=== PATIENT | male | born 1980 | race Caucasian/White ===

== ENCOUNTER 2017-02-10 00:55 | Inpatient (IN) | payer BC ==
[2017-02-10] VITALS (7 sets, daily range): BP systolic 98–143; BP diastolic 62–92
[~2017-02-10] VITALS: Ht 185.4 cm; Wt 122.5 kg
--- NOTE | ~2017-02-10 | O ---
[facility] [place] [address] OPERATIVE REPORT Name: FRANCIS ROOT Room #: 424-P ADM IN M.R.#: [id number] Admission: 02/10/17 Attend Phys: Al Betancourt MD Discharge: Date of : 80 Report #: [id number] THIS REPORT FOR: //name// CC: [facility] physician/PCP Al Betancourt SURGEON: Faby Castillo MD. SURVEY CAD TECHNICIAN: None. PREOPERATIVE DIAGNOSIS: Difficult Ovalle catheter placement. POSTOPERATIVE DIAGNOSIS: Difficult Ovalle catheter placement, [place] within the urethra. PROCEDURES PERFORMED: 1. Cystoscopy. 2. Ovalle catheter placement over a wire. CLINICAL SCENARIO: The patient is a 36-year-old gentleman who is undergoing surgery with Dr. Hernandez today and noted after his Ovalle was placed that no output was seen within the drainage bag. The Ovalle was therefore withdrawn and blood returned. Urology was asked to assess and make an attempt to replace the Ovalle catheter. NARRATIVE OF EVENTS: When I entered the operative suite, the patient was already prepped and draped in the dorsal lithotomy position. A flexible cystoscope had been brought into the operative suite. I inserted the flexible cystoscope into the urethra. The anterior urethra showed a [place] near the bulbar region. Proximal to this, I identified the sphincter, a small nonobstructive appearing prostate. I then entered the bladder and a large residual of urine was noted. I advanced a sensor wire followed by [address] catheter. Urine was clear after this was placed. I discussed this with Dr. Hernandez and recommended leaving the catheter for a few days to allow urethral healing. The patient was awakened from anesthesia at that point and transferred to the recovery area. By: [id number] Faby Castillo MD /nt
--- NOTE | ~2017-02-10 | S ---
[facility] [place] [address] SURGICAL PATH RPT PROCEDURE Name: OWEN ROOT Room #: 419-P ADM IN M.R.#: [id number] Admission: 02/10/17 Date of : 80 Discharge: Report #: [id number] Path Case #: [id number] PATHOLOGY REPORT COLLECTION DATE: 02/14/2017 RECEIVED DATE: 02/15/2017 SUBMITTING PHYS: Dr. Delon Raines, OTHER PHYS: Dr. Faby Betancourt SPECIMEN(S) RECEIVED: A.Sigmoid colon * * * * * * * * * * * * FINAL DIAGNOSIS: Colon, sigmoid, resection: - Colon with chronic diverticulitis, reactive changes, and extensive serosal adhesions (vegetable matter present in adhesion). PATHOLOGIST: Owen Anne M.D. REPORT ELECTRONICALLY SIGNED BY: Owen Anne M.D. DATE/TIME: 02/18/2017 14:26 * * * * * * * * * * * * GROSS PATHOLOGY: A. Received in formalin labeled "Owen Root sigmoid colon" and consists of a markedly dilated, on oriented, and on opened segment of large intestine that measures 25 cm in length with a diameter ranging from 5.5 cm to 13.0 cm. There is minimal fat attached to the segment. There are thick and ragged dark red maroon serosal adhesions at one end, narrow end. The remaining serosa is glistening, pink, red, and purple. The segment contains air and a small amount of pasty green brown fecal material. There is thickening of the muscularis propria at narrow end. The mucosa is markedly hyperemic and gradually transitioning into glistening curry mucosa at the dilated end. There are no mucosal masses identified. A1 margin at dilated end, customer service representative A2 opposite margin, customer service representative A3-A6 transmural sections of segment (NUNO; 02/15/2017) CLINICAL HISTORY: Large bowel obstruction INITIAL CPT CODE(S): [address] [address] SURGICAL PATH RPT PROCEDURE Name: OWEN ROOT Room #: 419-P ADM IN M.R.#: [id number] Admission: 02/10/17 Date of : 80 Discharge: Report #: [id number] Path Case #: [id number] A; 18200 Professional services performed by [facility] at [address] , [place] [address] Technical services performed by [facility] at [address] [place] [address], [address], [place] [address]. [facility] [address] [address] PHONE: [phone] DIRECTOR: Vikas Mcelroy M.D. * * * END OF REPORT * * *
--- NOTE | ~2017-02-10 | CRIT ---
[facility] [place] [address] CRITICAL CARE NOTE Name: FRANCIS ROOT Room #: 424-P ADM IN M.R.#: [id number] Admission: 02/10/17 Attend Phys: Al Betancourt MD Discharge: Date of : 80 Report #: [id number] THIS REPORT FOR: //name// CC: [facility] physician/PCP Al Betancourt DATE OF SERVICE: 02/10/2017 HISTORY OF PRESENT ILLNESS: This is a very pleasant 36-year-old male who I have been asked to see for further evaluation of obstructive GI symptoms, left lower quadrant and diffuse abdominal pain. He has had a change in bowel caliber over the course of the last several months. He had a workup approximately 1 month ago, which was negative at [facility] including a colonoscopy, which was either done at [facility] or [place]. He had had a colonoscopy approximately 1 year before that. PAST MEDICAL HISTORY: Is otherwise remarkable only for diverticulitis, IBS and ingrown toenail surgery. SOCIAL HISTORY: Denies significant alcohol consumption, but does smoke 1/2 a pack of cigarettes per day for 18 years. REVIEW OF SYSTEMS: Negative for weight loss, weakness or fatigue. He denies head, eyes, ears, nose or throat complaints. Denies chest pain, chest palpitation, chest pressure, cough, shortness of breath, wheezing, genitourinary, musculoskeletal or neuropsychiatric complaints. PHYSICAL EXAMINATION: GENERAL: The patient is afebrile. VITAL SIGNS: Stable. HEENT: Nonicteric. NECK: No JVD, thyromegaly or bruits. CARDIOVASCULAR: Regular. LUNGS: Clear. ABDOMEN: Soft, nondistended, nontender, normoactive bowel sounds. No hepatosplenomegaly. No stigmata of chronic liver disease. No abnormal masses or bruits. EXTREMITIES: No clubbing, cyanosis or edema. NEUROLOGIC: Grossly intact. RECTAL: Deferred. PERTINENT LABORATORY DATA: Include hemoglobin 16.1, white count 11.2. Chemistry unremarkable except for glucose 124. X-ray reveals 6 cm malignant-appearing stricture of the distal sigmoid colon with resultant colonic distention. [address] [address] CRITICAL CARE NOTE Name: FRANCIS ROOT Room #: 424-P ADM IN M.R.#: [id number] Admission: 02/10/17 Attend Phys: Al Betancourt MD Discharge: Date of : 80 Report #: [id number] ASSESSMENT AND PLAN: In summary, the patient has recurrent diverticulitis. He has had a colonoscopy done in the course of the last several months, but also a year ago, which did not reveal colon carcinoma. I suspect this is a diverticulitis with stricture. He is not fully obstructed as he does pass some bowel movement and liquid. We will prep him with enema prep as he is unlikely to tolerate p.o. prep due to his partial obstruction. We will plan on colonoscopy tomorrow. Thank you for allowing us to participate in the care of this nice man. By: [id number] 1402 Cordell Patel MD /nt
--- NOTE | ~2017-02-10 | S ---
[facility] [place] [address] SURGICAL PATH RPT PROCEDURE Name: OWEN ROOT Room #: 424-P ADM IN M.R.#: [id number] Admission: 02/10/17 Date of : 80 Discharge: Report #: [id number] Path Case #: [id number] PATHOLOGY REPORT COLLECTION DATE: 02/11/2017 RECEIVED DATE: 02/11/2017 SUBMITTING PHYS: Dr. Norm Ontiveros OTHER PHYS: Dr. Al Betancourt SPECIMEN(S) RECEIVED: A.Sigmoid colon stricture * * * * * * * * * * * * FINAL DIAGNOSIS: Large intestinal mucosa, "sigmoid colon stricture", endoscopic biopsy: - Mild architectural abnormalities identified along with subtle lamina propria fibrosis (please see comment). - Negative for active colitis. - Negative for dysplasia or malignancy. COMMENT: Examination shows mildly increased cellularity of the lamina propria along with subtle fibrosis in scattered foci in addition to focal crypt architectural abnormalities. Overall, findings are suggestive of a chronic process. A small focus with a collection of pigmented macrophages within lamina propria (suggestive of melanosis coli) is identified. Overall findings may be suggestive of a chronic resolving process, such as chronic diverticulitis, resolved episode of prior colitis, or past history of laxative use. Findings to suggest microscopic colitis are not identified. Please correlate clinically. (IUV:mml; 02/12/2017) PATHOLOGIST: Jo Ross M.D. REPORT ELECTRONICALLY SIGNED BY: Jo Ross M.D. DATE/TIME: 02/12/2017 16:56 * * * * * * * * * * * * GROSS PATHOLOGY: The specimen is received in formalin, labeled "Owen Root and sigmoid colon stricture", are several curry soft tissue 0.3 x 0.3 x 0.1 cm in aggregate, entirely submitted in A1. (SWS; 02/11/2017) [facility] [place] [address] SURGICAL PATH RPT PROCEDURE Name: OWEN ROOT Room #: 424-P ADM IN M.R.#: [id number] Admission: 02/10/17 Date of : 80 Discharge: Report #: [id number] Path Case #: [id number] CLINICAL HISTORY: Bowel obstruction, colon stricture INITIAL CPT CODE(S): A; 54174 Professional services performed by [facility] [address], [place] [address] Technical services performed by [facility] at [address] [place] [address], [facility] [address] [address]. [facility] [address] [place] [address] PHONE: [phone] DIRECTOR: Vikas Mcelroy M.D. * * * END OF REPORT * * *
[2017-02-10 02:02] LABS: ABSOLUTE NEUTROPHILS 6.8 thou/uL (1.4-8.2); BASOPHILS 0.3 % (0.0-2.0); EOSINOPHILS 0.8 % (0.0-3.0); HEMATOCRIT 46.8 % (42.0-52.0); HEMOGLOBIN 16.1 gm/dL (14.0-18.0); LYMPHOCYTES 32.3 % (24.0-44.0); MCH 31.6 pg (26.0-34.0); MCHC 34.3 g/dL (28.0-37.0); MCV 91.9 fL (80.0-100.0); MONOCYTES 6.3 % (1.0-8.0); PLATELET COUNT 201 thou/uL (150-400); POLYS 60.3 % (36.0-66.0); RBC 5.09 mil/uL (4.50-6.00); RDW 12.8 % (10.5-14.5); WBC 11.2 thou/uL (4.0-11.0)
[2017-02-10 02:04] LABS: MANUAL DIFF NO
[2017-02-10 02:05] LABS: CALCIUM 9.3 mg/dL (8.5-10.1); CREATININE 1.2 mg/dL (0.7-1.3); POTASSIUM 3.8 mmol/L (3.5-5.1)
[2017-02-10 02:10] LABS: ALBUMIN 4.4 g/dL (3.4-5.0); DIRECT BILIRUBIN 0.1 mg/dL (<0.1-0.3); TOTAL BILIRUBIN 0.6 mg/dL (<0.1-1.0); TOTAL PROTEIN 8.1 g/dL (6.4-8.2)
[2017-02-11 04:30] VITALS: BP 99/58
[2017-02-11 06:23] LABS: ABSOLUTE NEUTROPHILS 1.9 thou/uL (1.4-8.2); BASOPHILS 0.3 % (0.0-2.0); EOSINOPHILS 1.6 % (0.0-3.0); HEMATOCRIT 42.5 % (42.0-52.0); HEMOGLOBIN 14.8 gm/dL (14.0-18.0); LYMPHOCYTES 48.2 % (24.0-44.0); MCHC 34.7 g/dL (28.0-37.0); MCV 92.1 fL (80.0-100.0); MONOCYTES 11.4 % (1.0-8.0); PLATELET COUNT 170 thou/uL (150-400); POLYS 38.5 % (36.0-66.0); RBC 4.62 mil/uL (4.50-6.00); RDW 12.9 % (10.5-14.5); WBC 4.9 thou/uL (4.0-11.0)
[2017-02-11 06:27] LABS: MANUAL DIFF NO
[2017-02-11 06:33] LABS: CALCIUM 8.8 mg/dL (8.5-10.1); CREATININE 1.1 mg/dL (0.7-1.3); POTASSIUM 4.4 mmol/L (3.5-5.1)
[2017-02-11 08:30] VITALS: BP 107/69
[2017-02-11 15:45] VITALS: BP 148/81
[2017-02-11 20:58] VITALS: BP 126/86
[2017-02-12 05:40] VITALS: BP 94/57
[2017-02-12 08:00] VITALS: BP 97/52
[2017-02-12 16:00] VITALS: BP 122/77
[2017-02-12 19:10] VITALS: BP 117/75
[2017-02-13 03:10] VITALS: BP 122/75
[2017-02-13 08:08] VITALS: BP 114/56
[2017-02-13 15:08] VITALS: BP 118/79
[2017-02-13 19:42] VITALS: BP 128/77
[2017-02-14 04:24] VITALS: BP 115/69
[2017-02-14 08:00] VITALS: BP 118/86
[2017-02-14 18:23] VITALS: BP 147/94
[2017-02-15 04:44] VITALS: BP 150/96
[2017-02-15 06:24] LABS: HEMATOCRIT 48.8 % (42.0-52.0); HEMOGLOBIN 16.8 gm/dL (14.0-18.0); MCH 31.7 pg (26.0-34.0); MCHC 34.5 g/dL (28.0-37.0); MCV 91.8 fL (80.0-100.0); PLATELET COUNT 241 thou/uL (150-400); RBC 5.31 mil/uL (4.50-6.00); RDW 13.1 % (10.5-14.5)
[2017-02-15 06:35] LABS: MANUAL DIFF YES
[2017-02-15 07:30] VITALS: BP 129/82
[2017-02-15 09:30] LABS: ALBUMIN 3.2 g/dL (3.4-5.0); CALCIUM 8.7 mg/dL (8.5-10.1); CREATININE 1.3 mg/dL (0.7-1.3); POTASSIUM 5.1 mmol/L (3.5-5.1); TOTAL BILIRUBIN 2.8 mg/dL (<0.1-1.0); TOTAL PROTEIN 6.7 g/dL (6.4-8.2)
[2017-02-15 09:30] LABS: ABSOLUTE NEUTROPHILS 2.7 thou/uL (1.4-8.2); PLATELET ESTIMATE NORMAL; TOTAL CELL COUNT 100
[2017-02-15 16:15] VITALS: BP 127/79
[2017-02-15 19:34] VITALS: BP 123/74
[2017-02-15 23:38] VITALS: BP 118/70
[2017-02-16 03:07] VITALS: BP 129/70
[2017-02-16 05:59] LABS: HEMATOCRIT 40.2 % (42.0-52.0); MCH 31.6 pg (26.0-34.0); RBC 4.32 mil/uL (4.50-6.00); RDW 12.9 % (10.5-14.5); WBC 5.6 thou/uL (4.0-11.0)
[2017-02-16 06:02] LABS: HEMOGLOBIN 13.7 gm/dL (14.0-18.0)
[2017-02-16 06:10] LABS: ALBUMIN 2.5 g/dL (3.4-5.0); CALCIUM 8.5 mg/dL (8.5-10.1); CREATININE 1.4 mg/dL (0.7-1.3); PHOSPHORUS 3.1 mg/dL (2.5-4.9); POTASSIUM 4.5 mmol/L (3.5-5.1)
[2017-02-16 07:40] VITALS: BP 121/77
[2017-02-16 16:01] VITALS: BP 133/71
[2017-02-16 19:26] VITALS: BP 129/81
[2017-02-17 03:45] VITALS: BP 137/79
[2017-02-17 06:24] LABS: HEMATOCRIT 34.4 % (42.0-52.0); MCH 31.4 pg (26.0-34.0); MCHC 33.4 g/dL (28.0-37.0); RBC 3.66 mil/uL (4.50-6.00); RDW 12.8 % (10.5-14.5)
[2017-02-17 06:29] LABS: HEMOGLOBIN 11.5 gm/dL (14.0-18.0)
[2017-02-17 06:37] LABS: ALBUMIN 2.7 g/dL (3.4-5.0); CALCIUM 8.3 mg/dL (8.5-10.1); MAGNESIUM 1.9 mg/dL (1.8-2.4); POTASSIUM 4.2 mmol/L (3.5-5.1); TOTAL BILIRUBIN 0.8 mg/dL (<0.1-1.0); TOTAL PROTEIN 5.8 g/dL (6.4-8.2)
[2017-02-17 07:18] VITALS: BP 129/76
[2017-02-17 14:50] VITALS: BP 142/76
[2017-02-17 20:00] VITALS: BP 165/83
[2017-02-18 04:30] VITALS: BP 142/92
[2017-02-18 06:15] LABS: HEMATOCRIT 35.1 % (42.0-52.0); HEMOGLOBIN 11.8 gm/dL (14.0-18.0); MCH 31.6 pg (26.0-34.0); MCHC 33.6 g/dL (28.0-37.0); MCV 93.8 fL (80.0-100.0); RBC 3.74 mil/uL (4.50-6.00); RDW 12.5 % (10.5-14.5); WBC 7.7 thou/uL (4.0-11.0)
[2017-02-18 06:23] LABS: CREATININE 0.9 mg/dL (0.7-1.3); POTASSIUM 3.9 mmol/L (3.5-5.1)
[2017-02-18 15:15] VITALS: BP 123/71
[2017-02-18 20:00] VITALS: BP 131/76
[2017-02-19 04:37] VITALS: BP 127/90
[2017-02-19 08:22] VITALS: BP 129/85
[2017-02-19 16:13] VITALS: BP 128/84
[2017-02-19 19:22] VITALS: BP 127/76
[2017-02-20 03:18] VITALS: BP 121/81
[2017-02-20 07:28] VITALS: BP 116/79
[2017-02-20] MEDS ORDERED: HYDROCODON-ACE1 EAC7 PO (09:49)
[2017-02-20] MEDS ORDERED: MIRALAX17 GM PO (09:49)
[2017-02-20] MEDS ORDERED: PROTONIX40 M1 PO (09:53)
[2017-02-20 11:58] VITALS: BP 116/79
[2017-02-20 15:00] VITALS: BP 123/75
[2017-02-20 15:36] LABS: HEMATOCRIT 32.9 % (42.0-52.0); HEMOGLOBIN 11.4 gm/dL (14.0-18.0)
== END 2017-02-20 18:53 | disposition home health service (06) | DRG 330 ==
LOC: ER 00:55 → EROBS 03:51 → 4E 03:51 → ENTRNSPT 02-20 18:47 → 4E 02-20 18:53
PROVIDERS: Emergency Medicine; Hospitalist; Internal Medicine Endocrinology, Diabetes & Metabolism; Internal Medicine Gastroenterology; Surgery
PROC: 0DTN0ZZ Resection of Sigmoid Colon, Open Approach (ICD-10-PCS; principal; 2017-02-14)
PROC: 0D9670Z Drainage of Stomach with Drainage Device, Via Natural or Artificial Opening (ICD-10-PCS; 2017-02-17)
PROC: 0DJD8ZZ Inspection of Lower Intestinal Tract, Via Natural or Artificial Opening Endoscopic (ICD-10-PCS; 2017-02-18)
DX: K56.51 Intestinal adhesions [bands], with partial obstruction (principal); K57.92 Diverticulitis of intestine, part unspecified, without perforation or abscess without bleeding; E87.1 Hypo-osmolality and hyponatremia; F17.210 Nicotine dependence, cigarettes, uncomplicated; F41.9 Anxiety disorder, unspecified; E86.9 Volume depletion, unspecified; Z83.3 Family history of diabetes mellitus
CPT/HCPCS: 10084; 10783; 49000; 50010; 50093; 50101; 50249; 50290; 50291; 50386; 50455; 50478; 50555; 50558; 51412; 51489; 51708; 51714; 52265; 53310; 54022; 55075; 56525; 56527; 56529; 56641; 56771; 57092; 62110; 62900; 64029; 70005

== ENCOUNTER → 2017-03-20 | Outpatient (CLI) | payer BC ==
[~2017-03-20] MED LIST: HYDROCODON-ACE1 EAC7 PO; MIRALAX17 GM PO; PROTONIX40 M1 PO
== END ==
LOC: HYPER 07:57
DX: T81.31XA Disruption of external operation (surgical) wound, not elsewhere classified, initial encounter (principal); K57.10 Diverticulosis of small intestine without perforation or abscess without bleeding; F17.210 Nicotine dependence, cigarettes, uncomplicated; Y92.89 Other specified places as the place of occurrence of the external cause; Y83.8 Other surgical procedures as the cause of abnormal reaction of the patient, or of later complication, without mention of misadventure at the time of the procedure

== ENCOUNTER → 2017-04-03 | Outpatient (CLI) | payer BC | LOC: HYPER 06:46 | DX: T81.31XD Disruption of external operation (surgical) wound, not elsewhere classified, subsequent encounter (principal); K57.10 Diverticulosis of small intestine without perforation or abscess without bleeding; F17.210 Nicotine dependence, cigarettes, uncomplicated; Y83.8 Other surgical procedures as the cause of abnormal reaction of the patient, or of later complication, without mention of misadventure at the time of the procedure ==

== ENCOUNTER → 2017-07-22 | Outpatient (CLI) | payer BC | LOC: CAT 05:48 | DX: K57.32 Diverticulitis of large intestine without perforation or abscess without bleeding (principal); K76.0 Fatty (change of) liver, not elsewhere classified ==